=== PATIENT | female | born 1960 | race Caucasian/White ===

== ENCOUNTER 2018-02-03 13:43 | Observation (INO) ==
[2018-02-04 17:23] VITALS: BP 129/76
== END 2018-02-04 18:32 | disposition home or self-care (01) ==
LOC: N.ED 13:43 → N.EDINP 13:43 → N.TELES 17:46
PROVIDERS: ADMIT Internal Medicine Cardiovascular Disease; ATTEND Internal Medicine Cardiovascular Disease